=== PATIENT | male | born 1970 | race Two or more races ===

== ENCOUNTER 2018-09-08 18:19 | Emergency (ER) | payer MEDICAID ==
[~2018-09-08] VITALS: Ht 185.4 cm; Wt 142.4 kg
[2018-09-08 18:30] VITALS: Ht 185.4 cm; Wt 142.4 kg
[2018-09-08 20:06] VITALS: BP 148/74
== END 2018-09-08 20:06 | disposition home or self-care (01) ==
LOC: ED 18:19
DX: J06.9 Acute upper respiratory infection, unspecified (principal); H61.21 Impacted cerumen, right ear; J45.909 Unspecified asthma, uncomplicated
CPT/HCPCS: J1100; J7613

== ENCOUNTER 2018-10-17 08:33 | Emergency (ER) | payer MEDICAID ==
[~2018-10-17] VITALS: Ht 180.3 cm; Wt 141.1 kg
[2018-10-17 08:44] VITALS: Ht 180.3 cm; Wt 141.1 kg
[2018-10-17 11:00] VITALS: BP 175/99
== END 2018-10-17 11:00 | disposition home or self-care (01) ==
LOC: ED 08:33
DX: J45.901 Unspecified asthma with (acute) exacerbation (principal); Z88.6 Allergy status to analgesic agent
CPT/HCPCS: J7512; J7613; J7644; Q0092

== ENCOUNTER 2019-05-27 10:36 | Emergency (ER) | payer SELFPAY ==
[~2019-05-27] VITALS: Ht 185.4 cm; Wt 141.1 kg
[2019-05-27 10:45] VITALS: Ht 185.4 cm; Wt 141.1 kg
[2019-05-27 11:17] LABS: BASOPHIL % 0.5 % (0-2); PLATELET COUNT 196 x10^3mcL (130-400)
[2019-05-27 11:59] LABS: CARBON DIOXIDE 26.8 mmol/L (21-32); CHLORIDE SERUM 106 mmol/L (98-107); CREATININE SERUM 0.9 mg/dL (0.7-1.3); GFR1 > 60 mL/min; GLUCOSE SERUM 189 mg/dL (74-106); POTASSIUM SERUM 4.1 mmol/L (3.5-5.1); SODIUM SERUM 143 mmol/L (136-145)
[2019-05-27 12:04] LABS: ALBUMIN 3.5 g/dL (3.4-5.0); ALKALINE PHOSPHATASE 71 U/L (46-116); ALT/SGPT 33 U/L (16-63); AST/SGOT 16 U/L (15-37); BILIRUBIN TOTAL 0.46 mg/dL (0.20-1.00); TOTAL PROTEIN, SERUM 7.9 g/dL (6.4-8.2)
[2019-05-27 12:19] LABS: RED CELL DISTRIBUTION WIDTH 14.6 % (11.5-14.5)
[2019-05-27 12:41] VITALS: BP 176/91
== END 2019-05-27 12:41 | disposition home or self-care (01) ==
LOC: ED 10:36
PROVIDERS: Emergency Medicine
DX: K62.5 Hemorrhage of anus and rectum (principal); I10 Essential (primary) hypertension; J45.909 Unspecified asthma, uncomplicated; Z88.6 Allergy status to analgesic agent
CPT/HCPCS: 36415